=== PATIENT | female | born 1970 | race Caucasian/White ===

== ENCOUNTER → 2016-08-27 | Outpatient (CLI) | payer BC ==
[~2016-08-27] MED LIST: CHOL100010 PO; CRS5 PO; METO-217 PO; MISCCAP80 PO; MULT-506 PO; MULT-655 PO
--- NOTE | 2016-08-28 12:36 | MAMMOGRAPHY REPORT ---
BILATERAL DIGITAL SCREENING MAMMOGRAM TOMOSYNTHESIS WITH CAD: 08/27/2016 TECHNIQUE: Breast tomosynthesis in addition to standard 2D mammography was performed. Current study was also evaluated with a Computer Aided Detection (CAD) system. COMPARISON: Comparison is made to exams dated: 08/16/2014 mammogram, 10/23/2015 mammogram, 10/09/2015 breast MRI, 09/17/2015 mammogram, and 08/15/2013 mammogram - [facility]. BREAST COMPOSITION: The tissue of both breasts is heterogeneously dense, which may obscure small ma sses. FINDINGS: No suspicious masses, calcifications, or areas of architectural distortion are noted in e ither breast. There has been no significant interval change compared to prior exams. There are expe cted post surgical changes in the right inferior breast from prior surgical excision for ADH. Biops y marker clips are noted in bilateral lower inner quadrants. Nodular asymmetry in the right lateral breast is stable dating back to the 2008 exam. IMPRESSION: ACR BI-RADS CATEGORY 2: BENIGN There is no mammographic evidence of malignancy. A 1 year screening mammogram is recommended. The p atient will receive written notification of the results. Approximately 10% of breast cancers are not detected with mammography. A negative mammographic repor t should not delay biopsy if a clinically suggestive mass is present. Caren Marr M.D. /:08/28/2016 07:42:27 Park Worker: Tosin PINEAD)(Maritza), [facility] letter sent: Normal 1/2 BI-RADS Code: ACR BI-RADS Category 2: Benign
== END | disposition home or self-care (01) ==
LOC: C.MAMM 17:32
PROVIDERS: ATTEND Obstetrics & Gynecology
DX: Z12.31 Encounter for screening mammogram for malignant neoplasm of breast (principal)

== ENCOUNTER → 2016-11-27 | Outpatient (CLI) | payer BC ==
[2016-11-27 10:03] LABS: BLOOD UREA NITROGEN 15 mg/dl (7-18); BUN/CREATININE RATIO 12.3 (10-20); CALCIUM 9.2 mg/dl (8.5-10.1); CARBON DIOXIDE 28 mmol/L (21-32); CHLORIDE 110 mmol/L (98-107); GLUCOSE 98 mg/dl (70-99); POTASSIUM 4.4 mmol/L (3.5-5.1); SODIUM 144 mmol/L (136-145)
[2016-11-27 10:07] LABS: CHOLESTEROL 168 mg/dl (0-200); CHOLESTEROL/HDL RATIO 3.9; HDL CHOLESTEROL 43 mg/dl; LDL CHOLESTEROL CALCULATED 96 mg/dl; TRIGLYCERIDES 143 mg/dl (0-150); VERY LOW DENSITY LIPOPROT CALC 29 mg/dl
[2016-11-27 10:45] LABS: ESTIMATED AVERAGE GLUCOSE 111 mg/dl; HA1C FLAG Normal (Normal)
== END | disposition home or self-care (01) ==
LOC: C.LAB1850 07:23
PROVIDERS: ATTEND Nurse Practitioner Family
DX: E78.00 Pure hypercholesterolemia, unspecified (principal); R73.9 Hyperglycemia, unspecified

== ENCOUNTER → 2017-09-02 | Outpatient (CLI) | payer BC ==
--- NOTE | 2017-09-03 15:53 | MAMMOGRAPHY REPORT ---
BILATERAL DIGITAL SCREENING MAMMOGRAM TOMOSYNTHESIS WITH CAD: 09/02/2017 CLINICAL HISTORY: Routine screening. Patient has no complaints. TECHNIQUE: Breast tomosynthesis in addition to standard 2D mammography was performed. Current study was also evaluated with a Computer Aided Detection (CAD) system. COMPARISON: Comparison is made to exams dated: 08/27/2016 mammogram, 01/29/2016 specimen, 08/16/2014 m ammogram, 08/15/2013 mammogram, 08/12/2012 mammogram - [facility], and 05/08/2009. BREAST COMPOSITION: The tissue of both breasts is heterogeneously dense, which may obscure small mas ses. FINDINGS: No suspicious masses, calcifications, or areas of architectural distortion are noted in ei ther breast. There has been no significant interval change compared to prior exams. There are expect ed post surgical changes in the right inferior breast from prior surgical excision for ADH. Biopsy m arker clips are noted in bilateral lower inner quadrants. IMPRESSION: ACR BI-RADS CATEGORY 2: BENIGN There is no mammographic evidence of malignancy. A 1 year screening mammogram is recommended. The pa tient will receive written notification of the results. Approximately 10% of breast cancers are not detected with mammography. A negative mammographic report should not delay biopsy if a clinically suggestive mass is present. Caren Marr M.D. /:09/03/2017 07:39:36 Detective Lieutenant: Tosin PINEDA)(Maritza), [facility] letter sent: Normal 1/2 BI-RADS Code: ACR BI-RADS Category 2: Benign
== END | disposition home or self-care (01) ==
LOC: C.MAMM 17:29
PROVIDERS: ATTEND Obstetrics & Gynecology
DX: Z12.31 Encounter for screening mammogram for malignant neoplasm of breast (principal)

== ENCOUNTER 2025-05-16 02:40 | Observation (INO) ==
[2025-05-16] MEDS: NITROGLYCERIN SL 0.4 MG/TAB TAB SL STA (03:03)
--- NOTE | 2025-05-16 03:04 | Emergency Department Note ---
Impression & Plan Elevated troponin Admission ED Provider Note HPI: History obtained from patient. The patient is a 55-year-old female who presents the emergency department with chief complaint of left-sided chest pain. Patient states that she has had this pain intermittently for about the past week. Patient states she gets intense episodes of pain that do not seem to correlate with exertion, she states that they usually resolve without issue.Patient states that she awoke from sleep about an hour prior to arrival to the ER with an intense episode of left-sided chest pain that went to her back. On my assessment here in the ED the patient states that pain is now resolved. Patient is very anxious and tearful on arrival, she states that she has been under a lot of stress recently and she thinks this might be playing a role in some of her symptoms. Patient is noted to be hypertensive on arrival at 175/119, she otherwise is hemodynamically stable and saturating well on room air on my initial evaluation. ROS: - Per HPI Differential Diagnosis: Acute coronary syndrome, pulmonary embolism, aortic dissection, pneumothorax, anxiety reaction/panic attack , amongst other potential pathologies. *Outpatient medications and allergy history reviewed. PE: General: Alert HEENT: Normocephalic, trachea midline Eyes: Extraocular eye movement is intact, no scleral erythema Pulmonary: Clear to auscultation bilaterally, no wheezing Cardio: Regular rate and rhythm GI: Abdomen is soft to palpation : No suprapubic tenderness MSK: No evidence of trauma or malformation of the extremities, no edema Skin: No evidence of rash Neuro: Alert, no focal deficits Psychiatric: Cooperative INDEPENDENT INTERPRETATIONS: phototypesetting equipment monitor: (As interpreted by myself): - An order was placed for continuous cardiac monitoring - Patient was noted to be in Sinus rhythm with a rate of 70 EKG: (As interpreted by myself): Rate: 72 Rhythm: Normal sinus rhythm Intervals: Within normal limits ST changes: No ST elevation Time: 0253 Chest x-ray: (As interpreted by myself): No acute disease Interventions provided in ED: -Aspirin, sublingual nitroglycerin Medical Decision Making: IV was established and lab work obtained, patient was placed on environmental monitoring specialist.Lab work shows no leukocytosis, hemoglobin is normal, platelet count is normal, CMP does not show any evidence of any critical findings. Troponin is noted to be mildly elevated at 31.4. EKG per my interpretation shows normal sinus rhythm with some T wave flattening noted in the lateral leads, there is no evidence of any ST elevation. Patient does have multiple risk factors for coronary disease including uncontrolled hypertension for which she no longer takes any medications as well as a approximately [id number] history of smoking. CT angiography of the chest was obtained and there is no evidence of any aortic dissection or pulmonary embolism. Patient was given aspirin here in the ED, on my reassessment she states that she is feeling improved from previous. I discussed admission with the patient, she is in agreement. I think this would be the appropriate course of action at this time given her elevated troponin with transient episodes of chest pain. Case was discussed with the on-call hospitalist, Dr. Webb, and the patient was placed for admission in stable condition. Consultants/Discussions held with other healthcare providers: -Hospitalist, Dr. Webb Disposition discussion held by myself with: -Patient Diagnosis: 1. Chest pain, acute 2. Elevated high-sensitivity troponin level, acute 3. Active smoker 4. Hypertension, established, poorly controlled Disposition: ADMIT Sampson Bullock DO Emergency Medicine Past Med/Surg History Problem List (Updated 05/16/25 @ 05:53 by Sampson Bullock DO) Elevated troponin (Acute) Hyperlipidemia Encounter for pre-operative examination Current smoker (Acute) Lower extremity edema (Acute) Impaired fasting glucose (Acute) Hypertriglyceridemia (Acute) Hypertension (Acute) Hearing loss (Acute) Chronic kidney disease, stage 3 (Acute) Medical History (Updated 05/16/25 @ 05:53 by Sampson Bullock DO) History of abnormal cervical Pap smear Internal and external prolapsed hemorrhoids Atypical ductal hyperplasia of breast (Unknown) Surgical History Status post trigger finger release left History of left breast biopsy multiple History of right breast biopsy multiple History of colonoscopy S/P hemorrhoidectomy S/P wisdom tooth extraction S/P lumpectomy, right breast Family History Father Diabetes Leukemia Other No family history of adverse response to anesthesia Denies family history of Ovarian cancer Prostate cancer Myocardial infarction Breast cancer Colorectal cancer Social History (Updated 09/05/22 @ 08:06 by JULIO Osborne) Smoking Status: Current every day smoker Tobacco Type: Cigarettes Age Started Using Tobacco: 14; packs per day: 0.5; Cigarettes Per Day: 10 a day; Second Hand Exposure: Yes (boyfriend smokes); Do You Dip or Chew Tobacco: No; Hx Alcohol Use: Yes Alcohol type: beer Alcohol Intake Frequency: 2-3 x/Week Hx Substance Use: No Preferred Language: Afghan Communication Ability: Effective Visual Impairment: No Limitations Hearing Ability: Hard of Hearing Gas Controller Required: No Beliefs That Will Affect Care: None marital status: Single Current Living Situation: Family and Significant Other Current Living Situation Comment: Lives with daughter and boyfriend current occupational status: employed current occupation: [employer] director How many Children do You have: 1 Feels Safe at Home: Yes Childhood Exposure to Second-Hand Smoke: No Diet: regular Diet Comment: regular caffeine: Yes during the past year weight has: remained stable Dental Care, Regularly: Yes Physical Activity Frequency: 5-6 Times per Week Seatbelt Use: always Sunscreen Use: Yes Assistive Devices: None Allergies Allergies Allergy/AdvReac Type Severity Reaction Status Date / Time No Known Allergies Allergy Mild Verified 09/05/22 08:00 Home Meds Home Medications Medication Instructions Recorded Confirmed cholecalciferol (vitamin D3) 25 1,000 units PO QAM 03/25/19 09/05/22 mcg (1,000 unit) capsule multivitamin (Daily Multi-Vitamin 1 tab PO QAM 03/25/19 09/05/22 tablet) L.acidophil-L.casei-B.bifid-B.longum-FOS 1 cap PO QAM 03/19/20 09/05/22 2 billion cell-50 mg capsule (Probiotic Blend) psyllium husk 0.52 gram capsule 0.52 g PO DAILY 09/05/22 09/05/22 (Daily Fiber) Previous Rx's Medication Instructions Recorded varicella-zoster glycoE [id number] 0.5 ml IM .COMPLEX #1 ea 01/20/19 adj(PF) 50 mcg/0.5 mL IM susp, kit (Shingrix (PF)) metoprolol succinate 50 mg 50 mg PO DAILY #90 tabs 09/05/22 tablet,extended release 24 hr fenofibrate nanocrystallized 145 145 mg PO DAILY #90 tabs 06/10/23 mg tablet Results & Data (ED) Vital Signs Vital Signs - 24 hr 05/16/25 02:43 05/16/25 02:55 05/16/25 02:57 Pulse Rate 85 Pulse Rate from SpO2 Sensor Respiratory Rate 20 Respiratory Effort / Characteristics Non-Labored Spontaneous Respiratory Depth Normal Blood Pressure 220/132 H 175/119 H Blood Pressure [Right Arm] Blood Pressure Mean 161 124 Blood Pressure Mean [Right Arm] Pulse Oximetry 98 Oxygen Delivery Method Room Air Room Air Sepsis Recent Fever Within 48 Hours No Sepsis New/Unexplained Change in Mental Status N/A Sepsis Action Taken by Nursing No Action Required 05/16/25 02:57 05/16/25 02:58 05/16/25 03:11 Pulse Rate 78 Pulse Rate from SpO2 Sensor Respiratory Rate Respiratory Effort / Characteristics Respiratory Depth Blood Pressure 128/93 Blood Pressure [Right Arm] Blood Pressure Mean 104 Blood Pressure Mean [Right Arm] Pulse Oximetry Oxygen Delivery Method Room Air Sepsis Recent Fever Within 48 Hours Sepsis New/Unexplained Change in Mental Status Sepsis Action Taken by Nursing 05/16/25 03:11 05/16/25 03:12 05/16/25 03:13 Pulse Rate 79 Pulse Rate from SpO2 Sensor 77 Respiratory Rate 16 Respiratory Effort / Characteristics Respiratory Depth Blood Pressure 128/93 Blood Pressure [Right Arm] 128/93 Blood Pressure Mean 104 Blood Pressure Mean [Right Arm] 104 Pulse Oximetry 96 Oxygen Delivery Method Sepsis Recent Fever Within 48 Hours Sepsis New/Unexplained Change in Mental Status Sepsis Action Taken by Nursing 05/16/25 03:30 05/16/25 03:30 05/16/25 03:33 Pulse Rate 66 Pulse Rate from SpO2 Sensor 67 Respiratory Rate 19 Respiratory Effort / Characteristics Respiratory Depth Blood Pressure 138/107 H 138/107 H Blood Pressure [Right Arm] Blood Pressure Mean 120 120 Blood Pressure Mean [Right Arm] Pulse Oximetry 96 Oxygen Delivery Method Sepsis Recent Fever Within 48 Hours Sepsis New/Unexplained Change in Mental Status Sepsis Action Taken by Nursing 05/16/25 03:45 05/16/25 03:51 05/16/25 04:06 Pulse Rate 76 72 Pulse Rate from SpO2 Sensor 77 71 Respiratory Rate 14 12 Respiratory Effort / Characteristics Respiratory Depth Blood Pressure 137/100 Blood Pressure [Right Arm] Blood Pressure Mean 107 Blood Pressure Mean [Right Arm] Pulse Oximetry 98 97 Oxygen Delivery Method Sepsis Recent Fever Within 48 Hours Sepsis New/Unexplained Change in Mental Status Sepsis Action Taken by Nursing 05/16/25 04:30 05/16/25 04:30 05/16/25 04:30 Pulse Rate Pulse Rate from SpO2 Sensor Respiratory Rate Respiratory Effort / Characteristics Respiratory Depth Blood Pressure 141/100 H 141/100 H 141/100 H Blood Pressure [Right Arm] Blood Pressure Mean 106 106 106 Blood Pressure Mean [Right Arm] Pulse Oximetry Oxygen Delivery Method Sepsis Recent Fever Within 48 Hours Sepsis New/Unexplained Change in Mental Status Sepsis Action Taken by Nursing 05/16/25 04:30 05/16/25 04:33 05/16/25 04:45 Pulse Rate 73 80 Pulse Rate from SpO2 Sensor 73 79 Respiratory Rate 22 16 Respiratory Effort / Characteristics Respiratory Depth Blood Pressure 141/100 H Blood Pressure [Right Arm] Blood Pressure Mean 106 Blood Pressure Mean [Right Arm] Pulse Oximetry 95 94 Oxygen Delivery Method Sepsis Recent Fever Within 48 Hours Sepsis New/Unexplained Change in Mental Status Sepsis Action Taken by Nursing 05/16/25 05:00 05/16/25 05:00 05/16/25 05:00 Pulse Rate 64 Pulse Rate from SpO2 Sensor 64 Respiratory Rate 21 Respiratory Effort / Characteristics Non-Labored Respiratory Depth Normal Blood Pressure 151/101 H Blood Pressure [Right Arm] Blood Pressure Mean 114 Blood Pressure Mean [Right Arm] Pulse Oximetry 94 Oxygen Delivery Method Sepsis Recent Fever Within 48 Hours Sepsis New/Unexplained Change in Mental Status Sepsis Action Taken by Nursing 05/16/25 05:15 05/16/25 05:21 05/16/25 05:27 Pulse Rate 79 80 72 Pulse Rate from SpO2 Sensor 79 80 72 Respiratory Rate 20 14 13 Respiratory Effort / Characteristics Respiratory Depth Blood Pressure Blood Pressure [Right Arm] Blood Pressure Mean Blood Pressure Mean [Right Arm] Pulse Oximetry 96 97 96 Oxygen Delivery Method Sepsis Recent Fever Within 48 Hours Sepsis New/Unexplained Change in Mental Status Sepsis Action Taken by Nursing 05/16/25 05:30 05/16/25 05:33 Pulse Rate 77 Pulse Rate from SpO2 Sensor 76 Respiratory Rate 17 Respiratory Effort / Characteristics Respiratory Depth Blood Pressure 167/109 H Blood Pressure [Right Arm] Blood Pressure Mean 119 Blood Pressure Mean [Right Arm] Pulse Oximetry 98 Oxygen Delivery Method Sepsis Recent Fever Within 48 Hours Sepsis New/Unexplained Change in Mental Status Sepsis Action Taken by Nursing Laboratory Data 05/16/25 02:59 05/16/25 02:59 Lab Results 05/16/25 05/16/25 Range/Units 02:59 04:46 WBC 10.56 (4.8-10.8) K/ul RBC 4.98 (4.20-5.40) M/uL Hgb 15.8 (12.0-16.0) g/dl Hct 45.9 (37.0-47.0) % MCV 92.2 (80.0-100.0) fL MCH 31.7 (25.0-34.0) pg MCHC 34.4 (32.0-36.0) g/dL RDW Std Deviation 42.1 (36.4-46.3) fL RDW Coeff of Elisha 12.6 (11.5-14.5) % Plt Count 187 (130-400) K/uL MPV 11.2 (9.4-12.4) fL Immature Gran % (Auto) 0.3 % Neut % (Auto) 59.2 % Lymph % (Auto) 29.4 % Love % (Auto) 7.8 % Eos % (Auto) 2.7 % Baso % (Auto) 0.6 % Neut # (Auto) 6.26 (1.40-6.50) K/uL Lymph # (Auto) 3.10 (1.20-3.40) K/uL Love # (Auto) 0.82 H (0.11-0.59) K/uL Eos # (Auto) 0.29 (0.00-0.50) K/uL Baso # (Auto) 0.06 (0.00-0.20) K/uL Immature Gran # (Auto) 0.03 (0.01-0.20) K/uL PT 9.8 (9.0-12.0) Seconds INR 0.9 (0.9-1.1) Sodium 140 (136-145) mmol/L Potassium 4.1 (3.5-5.1) mmol/L Chloride 105 (98-107) mmol/L Carbon Dioxide 29 (21-32) mmol/L Anion Gap 6 (3-11) BUN 17 (6-23) mg/dl Creatinine 0.90 (0.6-1.2) mg/dl Est Cr Clr Drug Dosing 57.0 ml/min eGFR 74.57 BUN/Creatinine Ratio 18.9 (10-20) Glucose 129 H (70-99(Fasting)) mg/dl Calcium 9.1 (8.6-10.3) mg/dl Total Bilirubin 0.6 (0.2-1.0) mg/dl AST 24 (13-39) U/L ALT 25 (7-52) U/L Alkaline Phosphatase 67 (34-104) U/L Troponin I High Sens 31.4 H 41.1 H (0-14) pg/ml Total Protein 6.8 (6.0-8.3) gm/dl Albumin 4.3 (3.4-5.0) gm/dl Globulin 2.5 (2.5-4.0) gm/dl Albumin/Globulin Ratio 1.7 (0.9-2) Lipase 39 (11-82) U/L Administered Medications Discontinued Medications Aspirin (Aspirin Chew 324 Mg) 324 mg PO NOW STA Stop: 05/16/25 03:44 Last Admin: 05/16/25 03:51 Dose: 324 mg Documented By: DION Nitroglycerin (Nitroglycerin Sl 0.4 Mg/Tab Tab) 0.4 mg SL NOW STA Stop: 05/16/25 02:58 Last Admin: 05/16/25 03:03 Dose: 0.4 mg Documented By: DION Imaging Data Radiologist's Impression: Chest X-Ray 05/16/25 02:57 EXAM: XR chest 1V portable CLINICAL HISTORY: Chest pain, nonspecific TECHNIQUE: An X-ray image of the chest was obtained in AP projection. COMPARISON: No prior studies are available for comparison. FINDINGS: Pulmonary Parenchyma: Chest leads are identified. Faint left lower lung zone paracardiac opacity is noted. No pulmonary nodules are identified. No evidence of pleural effusion or pleural thickening. Heart and Mediastinum: Heart size and shape are normal. There is no mediastinal widening or masses. No hilar or mediastinal lymphadenopathy. Bony Thorax: The bony thorax appears intact without fractures or deformities. Soft Tissues: Soft tissues overlying the chest wall are unremarkable. Small metallic clips are seen overlying the right lower lung zone shadow level. IMPRESSION: 1. Faint left lower lung zone paracardiac opacity may represent early pneumoinc or atelectasis. Clinical and laboratory correlation and follow-up are advised. 2. No pleural effusion is identified bilaterally. Electronically signed by Hiren Black 05-16-2025 04:27 AM Chest CTA 05/16/25 03:42 EXAM: CT angio chest PE protocol CLINICAL HISTORY: PE TECHNIQUE: Contiguous axial images were obtained from the neck base through the upper abdomen following intravenous administration of iodinated contrast material. Angiographic images were processed, and 3D MIP images were acquired for interpretation. If IV contrast material had not been administered, the likelihood of detecting abnormalities relevant to the patient's condition would have been substantially decreased. Coronal and sagittal 3-D MIPs were likewise performed and indicated to increase the sensitivity of detecting diffuse clinically relevant pathology. CT scan was performed according to ALARA (as low as reasonably achievable). COMPARISON: None. FINDINGS: Adequate contrast bolus was achieved without evidence of pulmonary embolism. The central airways are patent. The lungs are clear. No pleural effusion is present. The heart, aorta, and pulmonary arteries are of normal size and configuration. There are no appreciable coronary artery or aortic atherosclerotic calcifications. No pericardial effusion is identified. The thyroid is unremarkable. No mediastinal, hilar, or axillary lymphadenopathy is noted. No suspicious lytic or sclerotic osseous lesions are identified. IMPRESSION: 1. No evidence of pulmonary embolism or pulmonary disease. Electronically signed by Immanuel Fisher 05-16-2025 05:03 AM Discharge Plan Visit Data Chief Complaint: Cardiac Assessment Stated Complaint: LT ARM/JAW/CHEST/BACK PAIN ED Provider: Sampson Bullock Discharge Problem: Elevated troponin Patient Disposition: Admitted As Inpatient Condition: Fair Forms Stand Alone Forms: My [facility] [email or web address] Prescriptions Prescriptions: No Action fenofibrate nanocrystallized 145 mg tablet 145 mg PO DAILY Qty: 90 3RF Patient Comments: takes in the am Shingrix (PF) 50 mcg/0.5 mL suspension for reconstitution 0.5 ml IM .COMPLEX Qty: 1 1RF Rx Instructions: 0.5 mL IM Administer 2nd dose 2-6 months after 1st dose.; cholecalciferol (vitamin D3) 1,000 unit capsule 1,000 units PO QAM psyllium husk [Daily Fiber] 0.52 gram capsule 0.52 g PO DAILY metoprolol succinate 50 mg tablet extended release 24 hr 50 mg PO DAILY Qty: 90 3RF Patient Comments: takes in the am multivitamin [Daily Multi-Vitamin] tablet 1 tab PO QAM Probiotic Blend 2 billion cell-50 mg Capsule 1 cap PO QAM Referrals Referrals: Immanuel Dias, [Primary Care Provider] -
[2025-05-16 03:11] LABS: Hematocrit (blood only) 45.9 % (37.0-47.0); Hemoglobin 15.8 g/dl (12.0-16.0); Immature Granulocytes # (auto) 0.03 K/uL (0.01-0.20); Immature Granulocytes % (auto) 0.3 %; Mean Corpuscular Hemoglobin 31.7 pg (25.0-34.0); Mean Corpuscular Volume 92.2 fL (80.0-100.0); Platelet Count 187 K/uL (130-400); RDW Standard Deviation 42.1 fL (36.4-46.3); Red Blood Count 4.98 M/uL (4.20-5.40); White Blood Count 10.56 K/ul (4.8-10.8)
[2025-05-16 03:28] LABS: Alanine Aminotransferase 25.0 U/L (7-52); Albumin Globulin Ratio 1.7 (0.9-2); Albumin Level 4.3 gm/dl (3.4-5.0); Alkaline Phosphatase 67.0 U/L (34-104); Anion Gap 6.0 (3-11); Bilirubin,Total 0.6 mg/dl (0.2-1.0); Blood Urea Nitrogen 17.0 mg/dl (6-23); Calcium 9.1 mg/dl (8.6-10.3); Carbon Dioxide 29.0 mmol/L (21-32); Chloride 105.0 mmol/L (98-107); Creatinine Clr Calc Pharmacy 57.0 ml/min; Globulin 2.5 gm/dl (2.5-4.0); Glucose 129.0 mg/dl (70-99(Fasting)); Lipase 39.0 U/L (11-82); Potassium 4.1 mmol/L (3.5-5.1); Sodium 140.0 mmol/L (136-145); Total Protein 6.8 gm/dl (6.0-8.3)
[2025-05-16 03:40] LABS: INR 0.9 (0.9-1.1); Prothrombin Time 9.8 Seconds (9.0-12.0)
[2025-05-16] MEDS: ASPIRIN CHEW 324 MG PO STA (03:51)
--- NOTE | 2025-05-16 04:27 | XRay Report ---
EXAM: XR chest 1V portable CLINICAL HISTORY: Chest pain, nonspecific TECHNIQUE: An X-ray image of the chest was obtained in AP projection. COMPARISON: No prior studies are available for comparison. FINDINGS: Pulmonary Parenchyma: Chest leads are identified. Faint left lower lung zone paracardiac opacity is noted. No pulmonary nodules are identified. No evidence of pleural effusion or pleural thickening. Heart and Mediastinum: Heart size and shape are normal. There is no mediastinal widening or masses. No hilar or mediastinal lymphadenopathy. Bony Thorax: The bony thorax appears intact without fractures or deformities. Soft Tissues: Soft tissues overlying the chest wall are unremarkable. Small metallic clips are seen overlying the right lower lung zone shadow level. IMPRESSION: 1. Faint left lower lung zone paracardiac opacity may represent early pneumoinc or atelectasis. Clinical and laboratory correlation and follow-up are advised. 2. No pleural effusion is identified bilaterally. Electronically signed by Hiren Black 05-16-2025 04:27 AM
--- NOTE | 2025-05-16 05:04 | CT Scan Report ---
EXAM: CT angio chest PE protocol CLINICAL HISTORY: PE TECHNIQUE: Contiguous axial images were obtained from the neck base through the upper abdomen following intravenous administration of iodinated contrast material. Angiographic images were processed, and 3D MIP images were acquired for interpretation. If IV contrast material had not been administered, the likelihood of detecting abnormalities relevant to the patient's condition would have been substantially decreased. Coronal and sagittal 3-D MIPs were likewise performed and indicated to increase the sensitivity of detecting diffuse clinically relevant pathology. CT scan was performed according to ALARA (as low as reasonably achievable). COMPARISON: None. FINDINGS: Adequate contrast bolus was achieved without evidence of pulmonary embolism. The central airways are patent. The lungs are clear. No pleural effusion is present. The heart, aorta, and pulmonary arteries are of normal size and configuration. There are no appreciable coronary artery or aortic atherosclerotic calcifications. No pericardial effusion is identified. The thyroid is unremarkable. No mediastinal, hilar, or axillary lymphadenopathy is noted. No suspicious lytic or sclerotic osseous lesions are identified. IMPRESSION: 1. No evidence of pulmonary embolism or pulmonary disease. Electronically signed by Immanuel Fisher 05-16-2025 05:03 AM
--- NOTE | 2025-05-16 05:51 | History & Physical Report ---
Date of Service May 16, 2025 Assessment & Plan (1) Elevated troponin: (2) Hyperlipidemia: (3) Current smoker: (4) Hypertension: (5) Chronic kidney disease, stage 3: Plan 55yo female with history of HTN, HLP currently not on medications, active smoker presenting with 10 days of persistent discomfort in her left shoulder and jaw, between the shoulders. Patient with no known h/o CAD. Troponin is mildly elevated 31 --> 41. EKG with some non-specific T-wave inversions. #Chest pain/Elevated troponin - concern for cardiac etiology given elevation of troponin associate with worsening pain today. Moderate risk HEART score -Admit to medical with telemetry -Trend troponin -next at 10:45 -Check 2D echo -If troponin continues to increase would initiate Heparin and plan for possible catheterization -Cardiology consultation appreciated -Will check lipid panel and HgbA1C -Initiate ASA 81mg daily -Initiate Losartan 25mg daily #Hyperlipidemia -Check Lipid panel #Hypertension -Initiate Losartan 25mg daily -Monitor #Active smoker -Counseling ordered Lovenox for DVT prophylaxis NPO for now History of Present Illness Chief Complaint: chest pain Primary Care Provider: Immanuel Dias, DO 55yo female with history of HTN, HLP, CKD and active tobacco use presenting with 10 days of intermittent chest pain. Patient notes fairly severe pain that has been occurring in her upper back on the left side, between her shoulder blades and into her shoulder. Today she noted the pain in her jaw as well and it woke her from sleep. Pain is sharp, stabbing and shooting in nature. She has had occasional anterior chest tightness but overall denies cough, SOB, palpitations, nausea, vomiting, dizziness, syncope or diaphoresis. The pain is not pleuritic and largely non-positional. Patient hikes frequently - no change in exercise tolerance or exertional chest pain. Patient has had marked increase in the stress in her life of late - two weeks ago a long-term partner and her best friend's mother recently as well. She was driving home from [place] last night for the viewing and developed the discomfort between her shoulder blades and into her left shoulder for 20-30 minutes. Patient was previously on medications for her blood pressure and cholesterol, however she discontinued them approximately 1 year ago. She smokes appx 1/2 PPD Presently chest pain free. Relieved with Nitro administered in the ER. ER Course: Nitro ASA Allergies Allergy/AdvReac Type Severity Reaction Status Date / Time No Known Allergies Allergy Mild Verified 09/05/22 08:00 Home Medications Medication Instructions Recorded Confirmed Type varicella-zoster glycoE [id number] 0.5 ml IM .COMPLEX #1 ea 01/20/19 09/05/22 Rx adj(PF) 50 mcg/0.5 mL IM susp, kit (Shingrix (PF)) cholecalciferol (vitamin D3) 25 1,000 units PO QAM 03/25/19 09/05/22 History mcg (1,000 unit) capsule multivitamin (Daily Multi-Vitamin 1 tab PO QAM 03/25/19 09/05/22 History tablet) L.acidophil-L.casei-B.bifid-B.longum-FOS 1 cap PO QAM 03/19/20 09/05/22 History 2 billion cell-50 mg capsule (Probiotic Blend) metoprolol succinate 50 mg 50 mg PO DAILY #90 tabs 09/05/22 09/05/22 Rx tablet,extended release 24 hr psyllium husk 0.52 gram capsule 0.52 g PO DAILY 09/05/22 09/05/22 History (Daily Fiber) fenofibrate nanocrystallized 145 145 mg PO DAILY #90 tabs 06/10/23 Rx mg tablet Past Med/Surg History Problem List Elevated troponin (Acute) Hyperlipidemia Encounter for pre-operative examination Current smoker (Acute) Lower extremity edema (Acute) Impaired fasting glucose (Acute) Hypertriglyceridemia (Acute) Hypertension (Acute) Hearing loss (Acute) Chronic kidney disease, stage 3 (Acute) Medical History History of abnormal cervical Pap smear Internal and external prolapsed hemorrhoids Atypical ductal hyperplasia of breast (Unknown) Surgical History Status post trigger finger release left History of left breast biopsy multiple History of right breast biopsy multiple History of colonoscopy S/P hemorrhoidectomy S/P wisdom tooth extraction S/P lumpectomy, right breast Family History Father Diabetes Leukemia Other No family history of adverse response to anesthesia Denies family history of Ovarian cancer Prostate cancer Myocardial infarction Breast cancer Colorectal cancer Social History Smoking Status: Current every day smoker Tobacco Type: Cigarettes Age Started Using Tobacco: 14; packs per day: 0.5; Cigarettes Per Day: 10 a day; Second Hand Exposure: Yes (boyfriend smokes); Do You Dip or Chew Tobacco: No; Hx Alcohol Use: Yes Alcohol type: beer Alcohol Intake Frequency: 2-3 x/Week Hx Substance Use: No Preferred Language: Citizen Of [place] Communication Ability: Effective Visual Impairment: No Limitations Hearing Ability: Hard of Hearing Top And Seat Cover Fitter Required: No Beliefs That Will Affect Care: None marital status: Single Current Living Situation: Family and Significant Other Current Living Situation Comment: Lives with daughter and boyfriend current occupational status: employed current occupation: [employer] director How many Children do You have: 1 Feels Safe at Home: Yes Childhood Exposure to Second-Hand Smoke: No Diet: regular Diet Comment: regular caffeine: Yes during the past year weight has: remained stable Dental Care, Regularly: Yes Physical Activity Frequency: 5-6 Times per Week Seatbelt Use: always Sunscreen Use: Yes Assistive Devices: None Review of Systems Review of Systems: All systems reviewed & are unremarkable except as noted in HPI & below Physical Exam Physical Exam: General: patient resting comfortably, NAD, non-toxic in appearance, AA&O x 4 Skin: warm, dry, intact, no rashes or lesions HEENT: NC/AT, PERRL, EOMI, anicteric sclera, conjunctiva without injection, ext ernal ear normal to inspection and nontender, nares patent, moist mucus membranes, dentition intact, no oropharyngeal lesions, neck supple, trachea midline, no LAD, no thyromegaly, no JVD Heart: +S1/S2, regular, no m/r/g, +reproducible chest wall pain and pain with palpation of left shoulder and upper arm Lungs: equal air entry bilaterally, no rales/rhonchi/wheezes Abd: +BS, soft, NT/ND, no masses/organomegaly/ascites Ext: warm, 2+ pulses in UE/LE bilaterally, no clubbing/cyanosis or edema Neuro: nonfocal, patient AA&O x 4, speech intact, no facial droop, moving all extremities on command with equal strength 5/5 Results & Data Results & Data Vital Signs (Past 12 Hours) Vital Signs Pulse Resp BP BP Pulse Ox O2 Del Method 05/16/25 05:33 77 17 98 05/16/25 05:30 167/109 H 05/16/25 05:27 72 13 96 05/16/25 05:21 80 14 97 05/16/25 05:15 79 20 96 05/16/25 05:00 151/101 H 05/16/25 05:00 64 21 94 05/16/25 04:45 80 16 94 05/16/25 04:33 73 22 95 05/16/25 04:30 141/100 H 05/16/25 04:30 141/100 H 05/16/25 04:30 141/100 H 05/16/25 04:30 141/100 H 05/16/25 04:06 137/100 05/16/25 03:51 72 12 97 05/16/25 03:45 76 14 98 05/16/25 03:33 66 19 96 05/16/25 03:30 138/107 H 05/16/25 03:30 138/107 H 05/16/25 03:13 128/93 05/16/25 03:12 79 16 96 05/16/25 03:11 128/93 05/16/25 03:11 128/93 05/16/25 02:58 78 05/16/25 02:57 Room Air 05/16/25 02:57 Room Air 05/16/25 02:55 175/119 H 05/16/25 02:43 85 20 220/132 H 98 Room Air Laboratory Results Laboratory Results WBC 10.56 K/ul (4.8-10.8) 05/16/25 02:59 RBC 4.98 M/uL (4.20-5.40) 05/16/25 02:59 Hgb 15.8 g/dl (12.0-16.0) 05/16/25 02:59 Hct 45.9 % (37.0-47.0) 05/16/25 02:59 MCV 92.2 fL (80.0-100.0) 05/16/25 02:59 MCH 31.7 pg (25.0-34.0) 05/16/25 02:59 MCHC 34.4 g/dL (32.0-36.0) 05/16/25 02:59 RDW Std Deviation 42.1 fL (36.4-46.3) 05/16/25 02:59 RDW Coeff of Elisha 12.6 % (11.5-14.5) 05/16/25 02:59 Plt Count 187 K/uL (130-400) 05/16/25 02:59 MPV 11.2 fL (9.4-12.4) 05/16/25 02:59 Immature Gran % (Auto) 0.3 % 05/16/25 02:59 Neut % (Auto) 59.2 % 05/16/25 02:59 Lymph % (Auto) 29.4 % 05/16/25 02:59 [place] % (Auto) 7.8 % 05/16/25 02:59 Eos % (Auto) 2.7 % 05/16/25 02:59 Baso % (Auto) 0.6 % 05/16/25 02:59 Neut # (Auto) 6.26 K/uL (1.40-6.50) 05/16/25 02:59 Lymph # (Auto) 3.10 K/uL (1.20-3.40) 05/16/25 02:59 [place] # (Auto) 0.82 K/uL (0.11-0.59) H 05/16/25 02:59 Eos # (Auto) 0.29 K/uL (0.00-0.50) 05/16/25 02:59 Baso # (Auto) 0.06 K/uL (0.00-0.20) 05/16/25 02:59 Immature Gran # (Auto) 0.03 K/uL (0.01-0.20) 05/16/25 02:59 PT 9.8 Seconds (9.0-12.0) 05/16/25 02:59 INR 0.9 (0.9-1.1) 05/16/25 02:59 Sodium 140 mmol/L (136-145) 05/16/25 02:59 Potassium 4.1 mmol/L (3.5-5.1) 05/16/25 02:59 Chloride 105 mmol/L (98-107) 05/16/25 02:59 Carbon Dioxide 29 mmol/L (21-32) 05/16/25 02:59 Anion Gap 6 (3-11) 05/16/25 02:59 BUN 17 mg/dl (6-23) 05/16/25 02:59 Creatinine 0.90 mg/dl (0.6-1.2) 05/16/25 02:59 Est Cr Clr Drug Dosing 57.0 ml/min 05/16/25 02:59 eGFR 74.57 05/16/25 02:59 BUN/Creatinine Ratio 18.9 (10-20) 05/16/25 02:59 Glucose 129 mg/dl (70-99(Fasting)) H 05/16/25 02:59 Calcium 9.1 mg/dl (8.6-10.3) 05/16/25 02:59 Total Bilirubin 0.6 mg/dl (0.2-1.0) 05/16/25 02:59 AST 24 U/L (13-39) 05/16/25 02:59 ALT 25 U/L (7-52) 05/16/25 02:59 Alkaline Phosphatase 67 U/L (34-104) 05/16/25 02:59 Troponin I High Sens 41.1 pg/ml (0-14) H 05/16/25 04:46 Total Protein 6.8 gm/dl (6.0-8.3) 05/16/25 02:59 Albumin 4.3 gm/dl (3.4-5.0) 05/16/25 02:59 Globulin 2.5 gm/dl (2.5-4.0) 05/16/25 02:59 Albumin/Globulin Ratio 1.7 (0.9-2) 05/16/25 02:59 Lipase 39 U/L (11-82) 05/16/25 02:59 Impressions Chest X-Ray 05/16/25 02:57 EXAM: XR chest 1V portable CLINICAL HISTORY: Chest pain, nonspecific TECHNIQUE: An X-ray image of the chest was obtained in AP projection. COMPARISON: No prior studies are available for comparison. FINDINGS: Pulmonary Parenchyma: Chest leads are identified. Faint left lower lung zone paracardiac opacity is noted. No pulmonary nodules are identified. No evidence of pleural effusion or pleural thickening. Heart and Mediastinum: Heart size and shape are normal. There is no mediastinal widening or masses. No hilar or mediastinal lymphadenopathy. Bony Thorax: The bony thorax appears intact without fractures or deformities. Soft Tissues: Soft tissues overlying the chest wall are unremarkable. Small metallic clips are seen overlying the right lower lung zone shadow level. IMPRESSION: 1. Faint left lower lung zone paracardiac opacity may represent early pneumoinc or atelectasis. Clinical and laboratory correlation and follow-up are advised. 2. No pleural effusion is identified bilaterally. Electronically signed by Hiren Black 05-16-2025 04:27 AM Chest CTA 05/16/25 03:42 EXAM: CT angio chest PE protocol CLINICAL HISTORY: PE TECHNIQUE: Contiguous axial images were obtained from the neck base through the upper abdomen following intravenous administration of iodinated contrast material. Angiographic images were processed, and 3D MIP images were acquired for interpretation. If IV contrast material had not been administered, the likelihood of detecting abnormalities relevant to the patient's condition would have been substantially decreased. Coronal and sagittal 3-D MIPs were likewise performed and indicated to increase the sensitivity of detecting diffuse clinically relevant pathology. CT scan was performed according to ALARA (as low as reasonably achievable). COMPARISON: None. FINDINGS: Adequate contrast bolus was achieved without evidence of pulmonary embolism. The central airways are patent. The lungs are clear. No pleural effusion is present. The heart, aorta, and pulmonary arteries are of normal size and configuration. There are no appreciable coronary artery or aortic atherosclerotic calcifications. No pericardial effusion is identified. The thyroid is unremarkable. No mediastinal, hilar, or axillary lymphadenopathy is noted. No suspicious lytic or sclerotic osseous lesions are identified. IMPRESSION: 1. No evidence of pulmonary embolism or pulmonary disease. Electronically signed by Immanuel Fisher 05-16-2025 05:03 AM Code Status & VTE Plan VTE Prophylaxis Plan VTE Prophylaxis will be ordered: Yes PG Care Time/CCT Total # of Minutes Spent Total Time Spent with Patient: Total time spent is greater than 50% in coordination of care (as documented) at patient's floor/unit and/or counseling patient: Coding Level of Care Code 36896 INT INP/OBS CARE 3/75MIN Diagnoses Elevated troponin R79.89 Hyperlipidemia E78.5 Current smoker F17.200 Hypertension I10 Chronic kidney disease, stage 3 N18.3
[2025-05-16] MEDS ORDERED: ACETAMINOPHEN 325 MG TAB PO PRN (06:51)
[2025-05-16] MEDS ORDERED: NITROGLYCERIN SL 0.4 MG/TAB TAB SL PRN (06:51)
[2025-05-16] MEDS ORDERED: ONDANSETRON INJ 2 MG/ML 2 ML VIAL IV PRN (06:51)
[2025-05-16] MEDS: ENOXAPARIN INJ 40 MG/0.4 ML SYR SQ SCH (07:11)
[2025-05-16] MEDS: LOSARTAN POTASSIUM 25 MG TAB PO SCH (07:11)
[2025-05-16 09:07] LABS: Cholesterol 254.0 mg/dl (0-200); HDL Cholesterol 52.0 mg/dl; Magnesium 2.2 mg/dl (1.7-2.4); Triglycerides 339.0 mg/dl (0-150)
--- NOTE | 2025-05-16 10:48 | Cardiology Consultation ---
Date of Consultation May 16, 2025 Assessment & Plan (1) Elevated troponin: (2) Chest pain: (3) Hypertension: Plan 1. Chest pain: Patient symptoms more consistent with back and left shoulder discomfort. Symptoms are atypical and that they occur without any provocation. Relatively short in duration. No precordial symptoms. She has some risk factors for coronary disease. I think would be worth evaluating with exercise and echocardiography. In the absence of an abnormality noncardiac causes should be sought. 2. Elevated troponin: Very mild elevation in cardiac biomarkers. Not indicative of an acute coronary syndrome. More likely related to notable high blood pressure at the time of presentation. 3. Hypertension: She has a history of high blood pressure but not currently on medical therapy. Blood pressures have improved since admission. She received 1 dose of losartan this morning. It would seem reasonable to continue the medication and monitor her on outpatient basis. History of Present Illness Reason for Consultation: Chest pain Requesting Physician: Jon Attending Physician: Brant Garcia MD History of Present Illness Patient is a 55-year-old woman without a known history of cardiac disease who presented to the hospital for symptoms of chest discomfort. Patient states that for approximately 10 days she has been having some discomfort in the left back and scapular area. Does occasionally involve the left shoulder as well. The symptoms episodes are intermittent and random. Not associated with activity. In fact, the patient has been quite active during the past few days. She hikes regularly up hills and can carry heavy objects without inducing these symptoms. There does not appear to be any associated shortness of breath. The episode themselves last 10 to 30 minutes and then resolved without any particular intervention. No pleuritic symptoms. Not positional in nature. This morning she had a similar episode but also has some discomfort in the left jaw. Based on the nature of the symptoms she elected to present to the emergency room for an evaluation. Currently feeling well. No symptoms at this time. Allergies Allergy/AdvReac Type Severity Reaction Status Date / Time No Known Allergies Allergy Mild Verified 09/05/22 08:00 Home Medications Medication Instructions Recorded Confirmed Type No Known Home Medications 05/16/25 05/16/25 History Patient History Medical History (Updated 05/16/25 @ 10:56 by Arnulfo Hernandes MD) History of abnormal cervical Pap smear Internal and external prolapsed hemorrhoids Atypical ductal hyperplasia of breast (Unknown) Surgical History Status post trigger finger release left History of left breast biopsy multiple History of right breast biopsy multiple History of colonoscopy S/P hemorrhoidectomy S/P wisdom tooth extraction S/P lumpectomy, right breast Family History Father Diabetes Leukemia Other No family history of adverse response to anesthesia Denies family history of Ovarian cancer Prostate cancer Myocardial infarction Breast cancer Colorectal cancer Social History Smoking Status: Current every day smoker Tobacco Type: Cigarettes Age Started Using Tobacco: 14; packs per day: 0.5; Cigarettes Per Day: 10 a day; Second Hand Exposure: Yes (boyfriend smokes); Do You Dip or Chew Tobacco: No; Hx Alcohol Use: Yes Alcohol type: beer Alcohol Intake Frequency: 2-3 x/Week Hx Substance Use: No Preferred Language: [place] Communication Ability: Effective Visual Impairment: No Limitations Hearing Ability: Hard of Hearing Tile Professional Required: No Beliefs That Will Affect Care: None marital status: Single Current Living Situation: Family and Significant Other Current Living Situation Comment: Lives with daughter and boyfriend current occupational status: employed current occupation: [employer] director How many Children do You have: 1 Feels Safe at Home: Yes Childhood Exposure to Second-Hand Smoke: No Diet: regular Diet Comment: regular caffeine: Yes during the past year weight has: remained stable Dental Care, Regularly: Yes Physical Activity Frequency: 5-6 Times per Week Seatbelt Use: always Sunscreen Use: Yes Assistive Devices: None Review of Systems Review of Systems: Per HPI. Some situational depression with the of several loved ones recently. Physical Exam Physical Exam: She is alert and oriented x3. Mood affect appear normal. She answered all questions appropriately. HEENT: Sclerae are anicteric. Pupils are equal and reactive to light and accommodation. Extraocular movements were intact. Neuro: Cranial nerves intact Lungs: Lungs are clear to auscultation bilaterally. There are no rales wheezes or rhonchi. She has normal respiratory effort without use of accessory muscles. There is normal pulmonary excursion. Cardiac: The rhythm was regular. S1 and S2 were normal. There are no murmurs on examination. The PMI was not markedly displaced on palpation. Extremities: Patient has bilateral radial pulses that are equal in intensity. There is no evidence cyanosis or clubbing. There was no evidence of significant peripheral edema bilaterally. Skin: There are no rashes noted on examination today. Results & Data Vital Signs (Past 12 Hours) Vital Signs Temp Pulse Pulse Resp BP BP Pulse Ox 05/16/25 08:48 36.5 C 67 16 155/102 H 96 05/16/25 08:13 17 148/109 H 98 05/16/25 06:44 62 05/16/25 06:30 155/107 H 05/16/25 06:30 155/107 H 05/16/25 06:30 63 17 95 05/16/25 06:21 65 23 96 05/16/25 06:15 70 15 100 05/16/25 06:03 70 16 96 05/16/25 05:57 73 20 98 05/16/25 05:54 64 19 95 05/16/25 05:33 77 17 98 05/16/25 05:30 167/109 H 05/16/25 05:27 72 13 96 05/16/25 05:21 80 14 97 05/16/25 05:15 79 20 96 05/16/25 05:00 151/101 H 05/16/25 05:00 64 21 94 05/16/25 04:45 80 16 94 05/16/25 04:33 73 22 95 05/16/25 04:30 141/100 H 05/16/25 04:30 141/100 H 05/16/25 04:30 141/100 H 05/16/25 04:30 141/100 H 05/16/25 04:06 137/100 05/16/25 03:51 72 12 97 05/16/25 03:45 76 14 98 05/16/25 03:33 66 19 96 05/16/25 03:30 138/107 H 05/16/25 03:30 138/107 H 05/16/25 03:13 128/93 05/16/25 03:12 79 16 96 05/16/25 03:11 128/93 05/16/25 03:11 128/93 05/16/25 02:58 78 05/16/25 02:57 05/16/25 02:57 05/16/25 02:55 175/119 H 05/16/25 02:43 85 20 220/132 H 98 O2 Del Method 05/16/25 08:48 Room Air 05/16/25 08:13 Room Air 05/16/25 06:44 05/16/25 06:30 05/16/25 06:30 05/16/25 06:30 05/16/25 06:21 05/16/25 06:15 05/16/25 06:03 05/16/25 05:57 05/16/25 05:54 05/16/25 05:33 05/16/25 05:30 05/16/25 05:27 05/16/25 05:21 05/16/25 05:15 05/16/25 05:00 05/16/25 05:00 05/16/25 04:45 05/16/25 04:33 05/16/25 04:30 05/16/25 04:30 05/16/25 04:30 05/16/25 04:30 05/16/25 04:06 05/16/25 03:51 05/16/25 03:45 05/16/25 03:33 05/16/25 03:30 05/16/25 03:30 05/16/25 03:13 05/16/25 03:12 05/16/25 03:11 05/16/25 03:11 05/16/25 02:58 05/16/25 02:57 Room Air 05/16/25 02:57 Room Air 05/16/25 02:55 05/16/25 02:43 Room Air Laboratory Results Abnormal Lab Results 05/16/25 05/16/25 02:59 04:46 WBC 10.56 RBC 4.98 Hgb 15.8 Hct 45.9 MCV 92.2 MCH 31.7 MCHC 34.4 RDW Std Deviation 42.1 RDW Coeff of Elisha 12.6 Plt Count 187 MPV 11.2 Immature Gran % (Auto) 0.3 Neut % (Auto) 59.2 Lymph % (Auto) 29.4 [place] % (Auto) 7.8 Eos % (Auto) 2.7 Baso % (Auto) 0.6 Neut # (Auto) 6.26 Lymph # (Auto) 3.10 [place] # (Auto) 0.82 H Eos # (Auto) 0.29 Baso # (Auto) 0.06 Immature Gran # (Auto) 0.03 PT 9.8 INR 0.9 Sodium 140 Potassium 4.1 Chloride 105 Carbon Dioxide 29 Anion Gap 6 BUN 17 Creatinine 0.90 Est Cr Clr Drug Dosing 57.0 eGFR 74.57 BUN/Creatinine Ratio 18.9 Glucose 129 H Calcium 9.1 Magnesium 2.2 Total Bilirubin 0.6 AST 24 ALT 25 Alkaline Phosphatase 67 Troponin I High Sens 31.4 H 41.1 H Total Protein 6.8 Albumin 4.3 Globulin 2.5 Albumin/Globulin Ratio 1.7 Triglycerides 339 H Cholesterol 254 H LDL Cholesterol, Calc 134 VLDL Cholesterol, Calc 68 H HDL Cholesterol 52 Cholesterol/HDL Ratio 4.9 Lipase 39 PG Care Time/CCT Total # of Minutes Spent Total Time Spent with Patient: Total time spent is greater than 50% in coordination of care (as documented) at patient's floor/unit and/or counseling patient: Coding Level of Care Code 26613 IN/OBS CONSULT LVL 4,60M Diagnoses Elevated troponin R79.89 Chest pain R07.9 Hypertension I10
[2025-05-16 11:08] LABS: Hemoglobin A1C 5.9 % (4.5-5.6)
--- NOTE | 2025-05-16 16:54 | Hospitalist Progress Note ---
Date of Service May 16, 2025 Assessment & Plan (1) Elevated troponin: (2) Hyperlipidemia: (3) Current smoker: (4) Hypertension: (5) Chronic kidney disease, stage 3: Plan 55yo female with history of HTN, HLP currently not on medications, active smoker presenting with 10 days of persistent discomfort in her left shoulder and jaw, between the shoulders. Patient with no known h/o CAD. Troponin is mildly elevated 31 --> 41. EKG with some non-specific T-wave inversions. #Chest pain/Elevated troponin - See cardiology notes, stress test indicative of inferior high risk area, plan for angiogram in the morning - Remains pain-free at this time - Continue telemetry - Hold Lovenox in the morning, n.p.o. at midnight #Hyperlipidemia -Check Lipid panel, secondary prevention goals #Hypertension -Start Norvasc lieu of losartan -Monitor #Active smoker -Counseling ordered #FEN - Cardiac diet NPO after midnight Admission and Anticipated Discharge Date Admission Date: May 16, 2025 Subjective No recurrence of pain through the day. She tolerated the losartan well as of now. She had an echocardiogram in the morning. Stress test with cardiology. See assessment plan below. Lengthy discussion with the patient in regards to options of management. She was initially reluctant to stay but after lengthy discussion and patient will engage family agrees to stay through the night and have the angiogram in the AM. Physical Exam Physical Exam: General: patient resting comfortably, NAD, non-toxic in appearance, AA&O x 4 Skin: warm, dry, intact, no rashes or lesions HEENT: NC/AT, PERRL, EOMI, anicteric sclera, conjunctiva without injection, external ear normal to inspection and nontender, nares patent, moist mucus membranes, dentition intact, no oropharyngeal lesions, neck supple, trachea midline, no LAD, no thyromegaly, no JVD Heart: +S1/S2, regular, no m/r/g, +reproducible chest wall pain and pain with palpation of left shoulder and upper arm Lungs: equal air entry bilaterally, no rales/rhonchi/wheezes Abd: +BS, soft, NT/ND, no masses/organomegaly/ascites Ext: warm, 2+ pulses in UE/LE bilaterally, no clubbing/cyanosis or edema Neuro: nonfocal, patient AA&O x 4, speech intact, no facial droop, moving all extremities on command with equal strength 5/5 Results & Data Results & Data Vital Signs (Past 12 Hours) Vital Signs Temp Pulse Pulse Resp BP BP BP 05/16/25 16:16 79 18 172/101 H 05/16/25 15:31 70 05/16/25 11:44 36.4 C L 62 20 169/109 H 180/104 H 05/16/25 11:38 72 05/16/25 09:00 36.5 C 67 16 155/102 H 05/16/25 08:48 36.5 C 67 16 155/102 H 05/16/25 08:13 17 148/109 H 05/16/25 06:44 62 05/16/25 06:30 155/107 H 05/16/25 06:30 155/107 H 05/16/25 06:30 63 17 05/16/25 06:21 65 23 05/16/25 06:15 70 15 05/16/25 06:03 70 16 05/16/25 05:57 73 20 05/16/25 05:54 64 19 05/16/25 05:33 77 17 05/16/25 05:30 167/109 H 05/16/25 05:27 72 13 05/16/25 05:21 80 14 05/16/25 05:15 79 20 05/16/25 05:00 151/101 H 05/16/25 05:00 64 21 Pulse Ox O2 Del Method 05/16/25 16:16 98 Room Air 05/16/25 15:31 05/16/25 11:44 99 Room Air 05/16/25 11:38 05/16/25 09:00 96 Room Air 05/16/25 08:48 96 Room Air 05/16/25 08:13 98 Room Air 05/16/25 06:44 05/16/25 06:30 05/16/25 06:30 05/16/25 06:30 95 05/16/25 06:21 96 05/16/25 06:15 100 05/16/25 06:03 96 05/16/25 05:57 98 05/16/25 05:54 95 05/16/25 05:33 98 05/16/25 05:30 05/16/25 05:27 96 05/16/25 05:21 97 05/16/25 05:15 96 05/16/25 05:00 05/16/25 05:00 94 Laboratory Results 05/16/25 05/16/25 05/16/25 10:32 04:46 02:59 WBC 10.56 RBC 4.98 Hgb 15.8 Hct 45.9 MCV 92.2 MCH 31.7 MCHC 34.4 RDW Std Deviation 42.1 RDW Coeff of Elisha 12.6 Plt Count 187 MPV 11.2 Immature Gran % (Auto) 0.3 Neut % (Auto) 59.2 Lymph % (Auto) 29.4 Upson % (Auto) 7.8 Eos % (Auto) 2.7 Baso % (Auto) 0.6 Neut # (Auto) 6.26 Lymph # (Auto) 3.10 Upson # (Auto) 0.82 H Eos # (Auto) 0.29 Baso # (Auto) 0.06 Immature Gran # (Auto) 0.03 PT 9.8 INR 0.9 Sodium 140 Potassium 4.1 Chloride 105 Carbon Dioxide 29 Anion Gap 6 BUN 17 Creatinine 0.90 Est Cr Clr Drug Dosing 57.0 eGFR 74.57 BUN/Creatinine Ratio 18.9 Glucose 129 H Estimat Average Glucose 123 Hemoglobin A1c 5.9 H Calcium 9.1 Magnesium 2.2 Total Bilirubin 0.6 AST 24 ALT 25 Alkaline Phosphatase 67 Troponin I High Sens 52.2 H* D 41.1 H 31.4 H Total Protein 6.8 Albumin 4.3 Globulin 2.5 Albumin/Globulin Ratio 1.7 Triglycerides 339 H Cholesterol 254 H LDL Cholesterol, Calc 134 VLDL Cholesterol, Calc 68 H HDL Cholesterol 52 Cholesterol/HDL Ratio 4.9 Lipase 39 Diagnostic Findings Chest CTA 05/16/25 03:42 EXAM: CT angio chest PE protocol CLINICAL HISTORY: PE TECHNIQUE: Contiguous axial images were obtained from the neck base through the upper abdomen following intravenous administration of iodinated contrast material. Angiographic images were processed, and 3D MIP images were acquired for interpretation. If IV contrast material had not been administered, the likelihood of detecting abnormalities relevant to the patient's condition would have been substantially decreased. Coronal and sagittal 3-D MIPs were likewise performed and indicated to increase the sensitivity of detecting diffuse clinically relevant pathology. CT scan was performed according to ALARA (as low as reasonably achievable). COMPARISON: None. FINDINGS: Adequate contrast bolus was achieved without evidence of pulmonary embolism. The central airways are patent. The lungs are clear. No pleural effusion is present. The heart, aorta, and pulmonary arteries are of normal size and configuration. There are no appreciable coronary artery or aortic atherosclerotic calcifications. No pericardial effusion is identified. The thyroid is unremarkable. No mediastinal, hilar, or axillary lymphadenopathy is noted. No suspicious lytic or sclerotic osseous lesions are identified. IMPRESSION: 1. No evidence of pulmonary embolism or pulmonary disease. Electronically signed by Immanuel Fisher 05-16-2025 05:03 AM PG Care Time/CCT Total # of Minutes Spent Total Time Spent with Patient: Total time spent is greater than 50% in coordination of care (as documented) at patient's floor/unit and/or counseling patient: Prolonged Care Time 75 minutes spent over the course of 2 visits to the day discussing different evaluation and treatment options with the patient. Nurse was at the bedside. Coding Level of Care Code 23521 SUB INP/OBS CARE 3/50MIN Diagnoses Elevated troponin R79.89 Hyperlipidemia E78.5 Current smoker F17.200 Hypertension I10 Chronic kidney disease, stage 3 N18.3
--- NOTE | 2025-05-16 17:14 | XCELERA ---
[id number]
--- NOTE | 2025-05-16 18:19 | Electrocardiogram Report ---
Test Reason : Blood Pressure : */* mmHG Vent. Rate : 72 BPM Atrial Rate : 72 BPM P-R Int : 130 ms QRS Dur : 84 ms QT Int : 416 ms P-R-T Axes : 73 78 72 degrees QTcB Int : 455 ms Normal sinus rhythm Possible Left atrial enlargement Nonspecific ST and T wave abnormality Abnormal ECG No previous ECGs available Confirmed by Arnulfo Hernandes ([id number]) on 05/16/2025 6:19:23 PM Referred By: REFERRED SELF Confirmed By: Arnulfo Hernandes
[2025-05-16] MEDS: INFLUENZA VACC TS2025-26(6m+)/PF (IIV3) 0.5mL Syr IM ONE (20:59)
[2025-05-17 06:09] LABS: Hematocrit (blood only) 42.9 % (37.0-47.0); Hemoglobin 14.9 g/dl (12.0-16.0); Mean Corpuscular Hemoglobin 32.0 pg (25.0-34.0); Mean Corpuscular Volume 92.1 fL (80.0-100.0); Platelet Count 180 K/uL (130-400); RDW Standard Deviation 42.4 fL (36.4-46.3); Red Blood Count 4.66 M/uL (4.20-5.40); White Blood Count 8.27 K/ul (4.8-10.8)
[2025-05-17 06:30] LABS: Anion Gap 8.0 (3-11); Blood Urea Nitrogen 13.0 mg/dl (6-23); Calcium 8.9 mg/dl (8.6-10.3); Carbon Dioxide 26.0 mmol/L (21-32); Chloride 107.0 mmol/L (98-107); Creatinine Clr Calc Pharmacy 64.1 ml/min; Glucose 101.0 mg/dl (70-99(Fasting)); Potassium 3.7 mmol/L (3.5-5.1); Sodium 141.0 mmol/L (136-145)
[2025-05-17] MEDS ORDERED: ASPIRIN 81 MG ECTAB PO SCH (09:00)
--- NOTE | 2025-05-17 11:01 | Discharge Summary ---
Discharge Summary Date of Service May 17, 2025 Principal Dx & Hospital Course #1 = Principal Diagnosis (1) Elevated troponin: (2) Hyperlipidemia: (3) Current smoker: (4) Hypertension: (5) Chronic kidney disease, stage 3: Plan 55yo female with history of HTN, HLP currently not on medications, active smoker presenting with 10 days of persistent discomfort in her left shoulder and jaw, between the shoulders. Patient with no known h/o CAD. Troponin is mildly elevated 31 --> 41. EKG with some non-specific T-wave inversions. #Chest pain/Elevated troponin - See cardiology notes, stress test indicative of inferior high risk area, plan for angiogram in the morning - Remains pain-free at this time - patient was scheduled to have an angiogram this morning 05/17, had had number of discussions in regards to the patient and relation to angiogram and the importance of having this done in a timely fashion. She had threatened to leave AMA several times this morning finally reported to nursing that she would sign the AMA paperwork and leave. She is very clear of the risks of delaying the angiogram the possibility of imminent acute SD or, worsening of her condition or . Urged patient to follow-up in the outpatient setting to arrange for further testing as soon as possible - prescription for nitroglycerin sent to pharmacy #Hyperlipidemia -Check Lipid panel, secondary prevention goals - management through primary clinic #Hypertension -Start Norvasc lieu of losartan - prescription for Norvasc sent to pharmacy #Active smoker -Counseling ordered Admission HPI Per Admitting Provider 55yo female with history of HTN, HLP, CKD and active tobacco use presenting with 10 days of intermittent chest pain. Patient notes fairly severe pain that has been occurring in her upper back on the left side, between her shoulder blades and into her shoulder. Today she noted the pain in her jaw as well and it woke her from sleep. Pain is sharp, stabbing and shooting in nature. She has had occasional anterior chest tightness but overall denies cough, SOB, palpitations, nausea, vomiting, dizziness, syncope or diaphoresis. The pain is not pleuritic and largely non-positional. Patient hikes frequently - no change in exercise tolerance or exertional chest pain. Patient has had marked increase in the stress in her life of late - two weeks ago a long-term partner and her best friend's mother recently as well. She was driving home from [place] last night for the viewing and developed the discomfort between her shoulder blades and into her left shoulder for 20-30 minutes. Patient was previously on medications for her blood pressure and cholesterol, however she discontinued them approximately 1 year ago. She smokes appx 1/2 PPD Presently chest pain free. Relieved with Nitro administered in the ER. ER Course: Nitro ASA Discharge Exam Constitutional tearful but appropriate, sitting in the hospital bed, no apparent physical distress Neck no bruit Respiratory clear to auscultation bilaterally Cardiovascular regular rate and rhythm Musculoskeletal no edema Skin no pallor or rash Neurologic alert and oriented, intact thought, rational Psychiatric she has been somewhat labile and tearful throughout the hospitalization. She is able to continue to think rationally understands the content and topic of discussing angiogram and heart disease overall. Insight seems somewhat skewed in regards to her belief of the cause of her symptoms Discharge Plan Discharge Items Patient Disposition: Against Medical Advice Reason For Visit: CHEST PAIN, ELEVATED TROPONIN Discharge Diagnosis: unstable angina Condition on Discharge: Fair Activity: As commented below Lifting: Wait until after follow-up appointment Non-emergency contact: Primary Care Provider Call non-emergency contact if: your symptoms worsen and your pain is worsening Follow-up/Referrals: Immanuel Dias, DO [Primary Care Provider] - Diet: Heart Healthy Addtl Attending Provider Instructions: please return to the outpatient clinic and arrange for angiogram as soon as poss Pending Studies at Discharge: No Stand-Alone Forms: [employer], Smoking Cessation Skilled Items Patient informed of condition?: Yes DNR: No Medications and DC Order Prescriptions: New amlodipine 5 mg Tablet 5 mg PO QAM 30 Days Qty: 30 0RF aspirin 81 mg Tablet,Delayed Release (Dr/Ec) 81 mg PO DAILY 30 Days Qty: 30 0RF nitroglycerin [Nitrostat] 0.4 mg Tablet, Sublingual 0.4 mg sublingual Q5M PRN (Reason: chest pain) 30 Days Qty: 30 0RF Discharge Orders: Left Against Medical Advice (Routine); Ordered 05/17/25 Ordered By: Brant Pack/Other Patient Handouts: Unstable Angina, Symptoms of a Heart Attack, Your Heart Is at Risk Admission Data Admit Date/Time: 05/16/25 05:50 Attending Provider: Brant Garcia Admit Provider: Jacey Webb Primary Care Provider: Immanuel Dias Other Providers: Rick Pandya; Jacey Webb Hospital Stay Data Consultations 05/16/25 05:15 ED Decision to Admit Stat 05/16/25 05:50 Consult Cardiology Routine Diagnostic Imagining Performed 05/16/25 03:42 CT angio chest PE protocol Stat Pending Results Patient Have Any Pending Studies at Discharge: No Discharge Instructions Given to Patient (Per Discharging Provider) please return to the outpatient clinic and arrange for angiogram as soon as poss Total Time Total Time Spent Total Time Spent (In Minutes): 25 spent at the bedside with the patient, discussing the upcoming procedure and likely outpatient management after this is complete Coding Level of Care Code 62008 IN/OBS DISCH 30 MIN/LESS Diagnoses Elevated troponin R79.89 Hyperlipidemia E78.5 Current smoker F17.200 Hypertension I10 Chronic kidney disease, stage 3 N18.3
== END 2025-05-17 09:30 | disposition left against medical advice (07) ==
LOC: EDINP 02:40 → ED 02:40 → SUATTDRO 05:50 → 2N 06:38